=== PATIENT | female | born 1985 | race Caucasian/White ===

== ENCOUNTER 2018-08-28 06:43 | Inpatient (IN) | payer OTHER ==
[2018-08-28] MEDS ORDERED: AMPICILLIN 2 GM/NS (PMX) 100 ML (07:41)
[2018-08-28 07:50] LABS: ADD MAN DIFF? NO
[2018-08-28 07:55] LABS: BASOPHILS % 0.3 % (0.0-2.0); EOSINOPHILS # 0.1 10^3/ul (0.0-0.5); EOSINOPHILS % 1.2 % (0.0-7.0); HEMATOCRIT 35.2 % (37.0-47.0); HEMOGLOBIN 11.5 g/dl (12.0-16.0); LYMPHOCYTES # 2.9 10^3/ul (0.8-2.9); LYMPHOCYTES % 26.3 % (15.0-51.0); MEAN CORPUSCULAR HEMOGLOBIN 28.3 pg (29.0-33.0); MEAN CORPUSCULAR HGB CONC 32.7 g/dl (32.0-37.0); MEAN CORPUSCULAR VOLUME 86.5 fl (82.0-101.0); MEAN PLATELET VOLUME 9.8 fl (7.4-10.4); MONOCYTE # 0.5 10^3/ul (0.3-0.9); MONOCYTES % 4.8 % (0.0-11.0); NEUTROPHIL # 7.5 10^3/ul (1.6-7.5); NEUTROPHILS % 66.9 % (39.0-77.0); PLATELET COUNT 249 10^3/UL (140-415); RED BLOOD COUNT 4.07 10^6/ul (4.20-5.40); RED CELL DISTRIBUTION WIDTH 14.9 % (11.5-14.5)
[2018-08-28 07:55] LABS: WHITE BLOOD COUNT 11.1 10^3/ul (4.8-10.8)
[2018-08-28] MEDS: LIDOCAINE 0.5% (SDV) 50 ML INJ INFIL (08:00)
[2018-08-28] MEDS ORDERED: METHYLERGONOVINE 0.2 MG INJ IM (08:00)
[2018-08-28] MEDS ORDERED: MISOPROSTOL 200 MCG TAB PR (08:00)
[2018-08-28] MEDS ORDERED: BUTORPHANOL 2 MG INJ IV (08:00)
[2018-08-28] MEDS ORDERED: CARBOPROST 250 MCG INJ IM (08:00)
[2018-08-28] MEDS ORDERED: LIDOCAINE 1% (MPF) 30 ML INJ INJ (08:00)
[2018-08-28] MEDS ORDERED: BUTORPHANOL 1 MG INJ IV (08:00)
[2018-08-28] MEDS ORDERED: OXYTOCIN 30 UNITS/LR 500 ML IV ×2 (08:00)
[2018-08-28 08:14] LABS: INR 0.86; PROTIME 11.8 Sec (11.9-14.9); PT RATIO 0.9
[2018-08-28 08:15] LABS: PARTIAL THROMBOPLASTIN TIME 28.2 Sec (23.0-35.0)
[2018-08-28] MEDS: AMPICILLIN 2 GM/NS (PMX) 100 ML IV (08:20)
[2018-08-28] MEDS: LACTATED RINGER'S 1,000 ML IV* ×5 (08:20→18:39)
[2018-08-28] MEDS ORDERED: DIPHENHYDRAMINE 50 MG INJ IV (08:30)
[2018-08-28] MEDS ORDERED: NALOXONE (0.4 MG/ML) INJ IV (08:30)
[2018-08-28] MEDS ORDERED: HYDROmorphONE 1 MG/5 ML IV SYRINGE IV (08:30)
[2018-08-28] MEDS ORDERED: FENTAnyl 2MCG/ML-ROPIV 0.2% 100 ML BAG EPI (08:30)
[2018-08-28] MEDS ORDERED: ONDANSETRON 4 MG INJ IV ×2 (08:30)
[2018-08-28] MEDS ORDERED: KETOROLAC 30 MG INJ IV (08:30)
[2018-08-28] MEDS ORDERED: METOCLOPRAMIDE 10 MG INJ IV (08:30)
[2018-08-28] MEDS ORDERED: HYDROmorphONE 0.5 MG/0.5 ML SYG IV ×2 (08:30)
[2018-08-28] MEDS ORDERED: FENTAnyl 50 MCG/ML VIAL IV ×2 (08:30)
[2018-08-28 08:45] LABS: HEPATITIS B SURFACE ANTIGEN NEGATIVE (NEGATIVE)
[2018-08-28] MEDS ORDERED: IBUPROFEN 600 MG TAB PO (09:30)
[2018-08-28] MEDS: OXYTOCIN 30 UNITS/LR 500 ML IV ×3 (10:39→14:08)
[2018-08-28] MEDS: AMPICILLIN 1 GM/NS (PMX) 50 ML IV ×4 (11:44→16:58)
[2018-08-28] MEDS: HYDROmorphONE 1 MG/5 ML IV SYRINGE IV ×2 (16:02)
[2018-08-28] MEDS: IBUPROFEN 600 MG TAB PO ×2 (18:00→18:44)
[2018-08-28 20:17] LABS: RAPID PLASMA REAGIN NONREACTIVE (NR)
[2018-08-29] MEDS: IBUPROFEN 600 MG TAB PO ×4 (00:25→18:23)
[2018-08-29 09:14] LABS: ADD MAN DIFF? NO
[2018-08-29 09:19] LABS: BASOPHILS % 0.2 % (0.0-2.0); EOSINOPHILS # 0.1 10^3/ul (0.0-0.5); EOSINOPHILS % 1.2 % (0.0-7.0); HEMATOCRIT 28.5 % (37.0-47.0); HEMOGLOBIN 9.2 g/dl (12.0-16.0); LYMPHOCYTES % 27.7 % (15.0-51.0); MEAN CORPUSCULAR HEMOGLOBIN 28.1 pg (29.0-33.0); MEAN CORPUSCULAR HGB CONC 32.3 g/dl (32.0-37.0); MEAN CORPUSCULAR VOLUME 87.2 fl (82.0-101.0); MEAN PLATELET VOLUME 9.8 fl (7.4-10.4); MONOCYTE # 0.6 10^3/ul (0.3-0.9); MONOCYTES % 5.6 % (0.0-11.0); NEUTROPHIL # 7.1 10^3/ul (1.6-7.5); NEUTROPHILS % 64.8 % (39.0-77.0); PLATELET COUNT 221 10^3/UL (140-415); RED BLOOD COUNT 3.27 10^6/ul (4.20-5.40); RED CELL DISTRIBUTION WIDTH 15.1 % (11.5-14.5)
[2018-08-29 09:19] LABS: WHITE BLOOD COUNT 10.9 10^3/ul (4.8-10.8)
[2018-08-30] MEDS: IBUPROFEN 600 MG TAB PO ×3 (00:09→12:14)
== END 2018-08-30 14:55 | disposition home or self-care (01) | DRG 807 ==
LOC: OBT 06:43 → L-D 06:43 → OBT 07:07 → L-D 07:05 → PP1 14:36
PROVIDERS: Obstetrics & Gynecology
PROC: 10E0XZZ Delivery of Products of Conception, External Approach (ICD-10-PCS; principal; 2018-08-28)
DX: O62.3 Precipitate labor (principal); Z37.0 Single live birth; O69.81X0 Labor and delivery complicated by cord around neck, without compression, not applicable or unspecified; O99.214 Obesity complicating childbirth; E66.01 Morbid (severe) obesity due to excess calories; Z3A.40 40 weeks gestation of pregnancy
CPT/HCPCS: 62319; 76815; 76818; 85025; 85610; 85730; 86592; 86850; 86900; 86901; 87340